=== PATIENT | male | born 1985 | race Caucasian/White ===

== ENCOUNTER 2021-06-29 09:53 | Emergency (ER) | payer OTHER ==
[~2021-06-29] VITALS: Ht 160 cm; Wt 68.2 kg
[2021-06-29 09:58] VITALS: BP 126/58
== END 2021-06-29 11:05 | disposition home or self-care (01) ==
LOC: ER 09:54 → EDSEX 09:54 → ER 11:05
DX: L89.311 Pressure ulcer of right buttock, stage 1 (principal); D80.0 Hereditary hypogammaglobulinemia; R20.2 Paresthesia of skin; Z98.890 Other specified postprocedural states; Z56.0 Unemployment, unspecified; Z88.2 Allergy status to sulfonamides; Z88.8 Allergy status to other drugs, medicaments and biological substances
CPT/HCPCS: 99281